=== PATIENT | female | born 1975 | race Caucasian/White ===

== ENCOUNTER 2021-11-15 19:41 | Emergency (ER) | payer SELFPAY ==
[2021-11-15] MEDS ORDERED: Ketorolac 30 MG/ML SDV IM ONE (20:48)
== END 2021-11-15 21:17 | disposition home or self-care (01) ==
LOC: FB.ED 19:41
DX: M71.21 Synovial cyst of popliteal space [Baker], right knee (principal); F17.210 Nicotine dependence, cigarettes, uncomplicated; E66.9 Obesity, unspecified; Z68.31 Body mass index [BMI] 31.0-31.9, adult; Z88.0 Allergy status to penicillin; Z88.1 Allergy status to other antibiotic agents; Z88.5 Allergy status to narcotic agent; Z98.890 Other specified postprocedural states
CPT/HCPCS: 73560; 96372; 99281; 99283; J1885